=== PATIENT | male | born 1945 | race Caucasian/White ===

== ENCOUNTER 2022-08-09 13:00 | Emergency (ER) | payer MEDICARE, OTHER ==
[2022-08-09] MEDS ORDERED: Lidocaine 1% 5 ML VIAL INJECT ONE (13:09)
== END 2022-08-09 13:28 | disposition home or self-care (01) ==
LOC: DL.ED 13:00
DX: S60.352A Superficial foreign body of left thumb, initial encounter (principal); W45.8XXA Other foreign body or object entering through skin, initial encounter
CPT/HCPCS: 99283; J3490